=== PATIENT | male | born 1995 | race Caucasian/White ===

== ENCOUNTER 2018-08-30 12:33 | Emergency (ER) | payer SELFPAY ==
[2018-08-30] MEDS ORDERED: Amoxicillin/Potassium Clav 875 MG TAB ONE (12:49)
== END 2018-08-30 12:57 | disposition home or self-care (01) ==
LOC: BURERS 12:33
DX: J01.90 Acute sinusitis, unspecified (principal); Z79.899 Other long term (current) drug therapy
CPT/HCPCS: 99283